=== PATIENT | male | born 1965 | race Caucasian/White ===

== ENCOUNTER 2018-09-23 20:54 | Emergency (ER) | payer OTHER ==
[~2018-09-23] VITALS: Ht 182.9 cm; Wt 102.1 kg
[2018-09-23 21:02] VITALS: BP_SYST 152
--- NOTE | 2018-09-23 21:05 | NUR ---
Patient triaged and placed in waiting room. VSS and patient appears in no acute distress at this time. Accompanied by self , awaiting available bed, and MD notified of need for MSE.
--- NOTE | 2018-09-24 00:13 | NUR ---
Patient to ER bed 5 to gown for evaluation. Side rails up. Report given to ELADIO PHAN.
--- NOTE | 2018-09-24 00:20 | NUR ---
Pt C/O LT knee pain, swelling and tenderness. Pt has surgery 09/03/18 and during follow up appointment PCP ordered ultrasound and discovered a blood clot. Pain is 09/02 intermittent. Denies any other symptoms. Will continue to monitor.
--- NOTE | 2018-09-24 00:44 | NUR ---
Dr. Reynaga at bedside examining patient
[2018-09-24 00:52] VITALS: BP_SYST 152
--- NOTE | 2018-09-24 01:00 | NUR ---
Patient given written and verbal discharge instructions and verbalizes understanding. ER MD discussed with patient the results and treatment provided. Patient in stable condition. ID arm band removed. Patient educated on pain management and to follow up with PMD. Pain Scale 0/10. Opportunity for questions provided and answered. Medication side effect fact sheet provided.
== END 2018-09-24 00:52 | disposition home or self-care (01) ==
LOC: SED 20:54
DX: M25.562 Pain in left knee (principal); R03.0 Elevated blood-pressure reading, without diagnosis of hypertension; Z96.652 Presence of left artificial knee joint; Z88.0 Allergy status to penicillin
CPT/HCPCS: 93970; 99284